=== PATIENT | male | born 2000 | race Caucasian/White ===

== ENCOUNTER 2020-02-10 17:59 | Emergency (ER) | payer OTHER ==
[2020-02-10 18:05] VITALS: BP 140/70
[2020-02-10] MEDS ORDERED: HYDROcod/ACET 5/325 Prepack 4 PO STA (18:26)
[2020-02-10] MEDS ORDERED: PENICILLIN VK 250 MG TABLET PO STA (18:26)
--- NOTE | 2020-02-10 18:28 | ED Physician Documentation ---
History of Present Illness - Stated complaint Stated Complaint: TOOTH PX - Chief complaint Chief Complaint: Heent - History obtained from History obtained from: Patient (19-year-old gentleman who is active duty in the [employer] has had about 4 days of worsening dental pain from left mandibular last molar noting that he still has his wisdom teeth with some purulence expressed and mild facial swelling but no fevers.) Review of Systems Constitutional: reports: Reviewed and negative Eyes: reports: Reviewed and negative Ears: reports: Reviewed and negative Cardiac: reports: Reviewed and negative PD PAST MEDICAL HISTORY - Present Medications Home Medications: Ambulatory Orders Medication Instructions Recorded Confirmed Chlorhexidine Gluconate [Peridex] 15 ml MM QID #300 ml 02/10/20 HYDROcod/ACETAM 5/325 [[place] 5/325] 1 - 2 tab PO Q6H PRN #7 tablet 02/10/20 Ibuprofen [Motrin] 800 mg PO Q8H PRN #30 tablet 02/10/20 Penicillin V Potassium 500 mg PO Q6HR #40 tablet 02/10/20 - Allergies Allergies/Adverse Reactions: Allergies Allergy/AdvReac Type Severity Reaction Status Date / Time No Known Drug Allergies Allergy Verified 02/10/20 18:02 PD ED PE NORMAL - Vitals Vital signs reviewed: Yes - General General: Alert and oriented X 3, No acute distress - HEENT HEENT: Other (The left mandibular wisdom tooth is tender with just mild gingival swelling there but no obvious purulence at this time. No sublingual edema or trismus.) - Neck Neck: Supple, no meningeal sign, No bony TTP - Neuro Neuro: Alert and oriented X 3, Normal speech Results - Vitals Vitals: Vital Signs - 24 hr 02/10/20 18:02 Temperature 36.5 C Heart Rate 74 Respiratory 16 Rate Blood Pressure 140/70 H O2 Saturation 98 Oxygen O2 Source Room air Departure - Departure Disposition: 01 Home, Self Care Clinical Impression: Pain, dental Condition: Good Record reviewed to determine appropriate education?: Yes Instructions: ED Tooth Pain Prescriptions: Penicillin V Potassium 500 mg PO Q6HR #40 tablet Ibuprofen [Motrin] 800 mg PO Q8H PRN #30 tablet PRN Reason: PAIN &/OR FEVER HYDROcod/ACETAM 5/325 [[place] 5/325] 1 - 2 tab PO Q6H PRN #7 tablet PRN Reason: Pain Chlorhexidine Gluconate [Peridex] 15 ml MM QID #300 ml Comments: [facility] Forms: Activity restrictions
== END 2020-02-10 18:33 | disposition home or self-care (01) ==
LOC: ED 17:59
DX: K08.89 Other specified disorders of teeth and supporting structures (principal)
CPT/HCPCS: 99283; A9270

== ENCOUNTER 2020-07-08 00:34 | Emergency (ER) | payer OTHER ==
[2020-07-08 00:44] VITALS: BP 138/88
--- NOTE | 2020-07-08 01:20 | ED Physician Documentation ---
PD HPI HEENT - Stated complaint Stated Complaint: MOUTH INJ - Chief complaint Chief Complaint: Heent - History obtained from History obtained from: Patient - History of Present Illness Timing - onset: Enter time (23:30), Today Timing - details: Abrupt onset Pain level now: 2 Location: Tooth Recently seen: Not recently seen - Additional information Additional information: patient tripped when walking up stairs at home tonight, approximately 23:30. his tooth was fractured when it hit a stair. The same tooth had been broken approximately 5 years ago and he says part of the tooth was a ceramic implant from repair of that injury. he has no other injury except mild swelling of lower lip. Denies HUSAIN, neck pain. Denies LOC. He describes mild dental pain. Review of Systems Throat: reports: Dental pain / toothache PD PAST MEDICAL HISTORY - Past Medical History Past Medical History: No - Present Medications Home Medications: Ambulatory Orders Medication Instructions Recorded Confirmed No Known Home Medications 07/08/20 07/08/20 - Allergies Allergies/Adverse Reactions: Allergies Allergy/AdvReac Type Severity Reaction Status Date / Time No Known Drug Allergies Allergy Verified 07/08/20 00:44 PD ED PE NORMAL - Vitals Vital signs reviewed: Yes - General General: Alert and oriented X 3, No acute distress, Well developed/nourished - HEENT HEENT: Moist mucous membranes PD ED PE EXPANDED - HEENT HEENT Visual: 1 - deformity (lynne II fracture along line as diagrammed (trace exposed dentin). the tooth has minimal laxity. no gingival abnormality.) 2 - swelling (trace swelling, small echymosis, no laceration) Results - Vitals Vitals: Vital Signs - 24 hr 07/08/20 00:40 Temperature 36.5 C Heart Rate 91 Respiratory 16 Rate Blood Pressure 138/88 H O2 Saturation 98 Oxygen O2 Source Room air PD MEDICAL DECISION MAKING - ED course Complexity details: considered differential, d/w patient ED course: isolated injury after fall at home, with injury being lynne II fracture through maxillary left medial incisor. The exposed dentin is minimal. he says the pain is mild and declines analgesia. I considered placing calcium hydroxide paste for sealant effect, but none is available in ED (I was able to locate some, but it was ). Patient says he feels confident that he can arrange f/u later today and is comfortable with d/c home at this time. Departure - Departure Disposition: 01 Home, Self Care Clinical Impression: Tooth fracture Qualifiers: Encounter type: initial encounter Fracture type: closed Qualified Code(s): S02.5XXA - Fracture of tooth (traumatic), initial encounter for closed fracture Condition: Good Instructions: ED Fx Tooth Follow-Up: [facility] Torres [Provider Group] Rolando Panchal DDS [Provider Admit Priv/Credential] - Forms: Activity restrictions Discharge Date/Time: 07/08/20 02:27
== END 2020-07-08 02:27 | disposition home or self-care (01) ==
LOC: ED 00:34
DX: S02.5XXA Fracture of tooth (traumatic), initial encounter for closed fracture (principal); S00.531A Contusion of lip, initial encounter; W10.9XXA Fall (on) (from) unspecified stairs and steps, initial encounter; Y93.01 Activity, walking, marching and hiking; Y92.009 Unspecified place in unspecified non-institutional (private) residence as the place of occurrence of the external cause
CPT/HCPCS: 99281; 99282

== ENCOUNTER 2022-03-23 21:16 | Emergency (ER) | payer OTHER ==
[2022-03-23 21:25] VITALS: BP 152/72
--- NOTE | 2022-03-23 22:14 | ED Physician Documentation ---
PD HPI MALE - Stated complaint Stated Complaint: MALE - Chief complaint Chief Complaint: General - History obtained from History obtained from: Patient - History of Present Illness Timing - onset: How many hours ago (4) Timing - duration: Hours Timing - details: Gradual onset Pain level now: 3 Associated symptoms: Testiclar pain. No: Dysuria, Urinary frequency, Discharge, Scrotal swelling PD HPI MALE CONTRIB FACTORS: Sexually active Similar symptoms before: Has not had sx before Recently seen: Not recently seen - Additional information Additional information: HPI from patient. Patient c/o gradual onset left testicular pain, exacerbated with standing, palpation. Denies h/o similar symptoms. He is sexually active with more than one partner over past several months Review of Systems Constitutional: denies: Fever : denies: Dysuria, Frequency, Discharge Skin: denies: Rash PD PAST MEDICAL HISTORY - Past Medical History Past Medical History: Yes - Present Medications Home Medications: Ambulatory Orders Medication Instructions Recorded Confirmed Doxycycline [Vibramycin] 100 mg PO BID #19 tablet 03/24/22 - Allergies Allergies/Adverse Reactions: Allergies Allergy/AdvReac Type Severity Reaction Status Date / Time No Known Drug Allergies Allergy Verified 03/23/22 21:25 - Social History Does the pt smoke?: No Smoking Status: Never smoker Does the pt drink ETOH?: Yes Does the pt have substance abuse?: No - POLST Patient has POLST: No PD ED PE NORMAL - Vitals Vital signs reviewed: Yes - General General: Alert and oriented X 3, No acute distress, Well developed/nourished - Abdomen Abdomen: Soft, Non tender - Back Back: No CVA TTP Results - Vitals Vitals: Vital Signs - 24 hr 03/23/22 21:19 Temperature 37.5 C Heart Rate 92 Respiratory 17 Rate Blood Pressure 152/72 H O2 Saturation 98 Oxygen O2 Source Room air - Labs Labs: Laboratory Tests 03/23/22 22:25 Urine Color YELLOW Urine Clarity CLEAR Urine pH 8.0 H Ur Specific [place] 1.020 Urine Protein NEGATIVE Urine Glucose (UA) NEGATIVE Urine Ketones NEGATIVE Urine Occult Blood NEGATIVE Urine Nitrite NEGATIVE Urine Bilirubin NEGATIVE Urine Urobilinogen 0.2 (NORMAL) Ur Leukocyte Esterase NEGATIVE Ur Microscopic Review NOT INDICATED Urine Culture Comments NOT INDICATED PD Medical Decision Making - ED course Complexity details: reviewed results, re-evaluated patient, considered differential, d/w patient ED course: normal results on urinalysis. US as interpreted by radiology: "increased vasculariy within the testicles and epididymes. Findings are nonspecific but may reflect epididymoorchitis". Results d/w patient. Given that he is sexually active with more than one partner over past few months, antibiotic coverage for bacterial cause of symptoms and US findings to cover STDs is given in ED (ceftriaxone as one-time IM dose and PO doxycycline), and 10-day course of doxycycline e-prescribed to patient's pharmacy of choice Departure - Departure Disposition: 01 Home, Self Care Clinical Impression: Epididymitis Condition: Good Instructions: ED Epididymitis Prescriptions: Doxycycline [Vibramycin] 100 mg PO BID #19 tablet Comments: The ultrasound does not show any evidence of torsion; as we discussed, this would be an unlikely but serious cause of testicular pain. There is mild inflammation of both testes. This is a nonspecific finding, but one of the potential explanations for this finding in combination with your symptoms would be epididymitis. Discharge instructions regarding this diagnosis have been provided in this discharge packet. One of the possible causes of epididymitis is infection including STDs. You were given a one-time dose of an antibiotic in the emergency department, as well as the first dose of a 10-day course of a different antibiotic that would cover most of the typical bacterial causes of epididymitis. The oral antibiotic prescription has been electronically submitted to the [facility] pharmacy in [place]. Discharge Date/Time: 03/24/22 00:27
[2022-03-23 22:33] LABS: BILIRUBIN,URINE NEGATIVE (NEGATIVE); GLUCOSE, URINE (UA) NEGATIVE (NEGATIVE); KETONES,URINE (UA) NEGATIVE (NEGATIVE); LEUKOCYTE ESTERASE, URINE NEGATIVE (NEGATIVE); NITRITE,URINE NEGATIVE (NEGATIVE); OCCULT BLOOD,URINE NEGATIVE (NEGATIVE); PROTEIN,URINE NEGATIVE (NEGATIVE); UROBILINOGEN,URINE 0.2 (NORMAL) E.U./dL (NORMAL)
[2022-03-23 22:35] LABS: CLARITY,URINE CLEAR (CLEAR)
--- NOTE | 2022-03-23 23:47 | Ultrasound Report ---
PROCEDURE: Testicle w/Doppler INDICATIONS: left testicular pain TECHNIQUE: Real-time scanning was performed of the scrotum and testicles, with image documentation. Color and p ulse Doppler interrogation was performed of both testicles. COMPARISON: None. FINDINGS: Right: Testicle measures 4.9 x 2.1 x 2.8 cm and appears homogenous in echotexture. Epididymis is no rmal in overall size and morphology. There is a minimal hydrocele. No varicoceles. Overlying scrota l skin is normal in thickness. Left: Testicle measures 4.6 x 2.1 x 3.1 cm and appears homogeneous in echotexture. Epididymis is no rmal in overall size and morphology. There is a left epididymal head cyst or spermatocele measuring up to 0.5 cm. There is a minimal hydrocele. No varicoceles. Overlying scrotal skin is normal in thic kness. Doppler: Color and pulse Doppler demonstrate increased vascularity within the testicles and epididym ides bilaterally.. IMPRESSION: 1. Increased vascularity within the testicles and epididymides. Findings are nonspecific but may refl ect epididymoorchitis. Recommend correlation clinically. Reviewed by: Darryn Harris MD on 03/23/2022 11:46 PM PST Approved by: Darryn Harris MD on 03/23/2022 11:46 PM PST Station ID: [id number]
[2022-03-24] MEDS ORDERED: DOXYCYCLINE 100 MG TABLET PO STA (00:03)
[2022-03-24] MEDS ORDERED: cefTRIAXone 500 MG VIAL IM STA (00:03)
[2022-03-24] MEDS ORDERED: LIDOCAINE 1% 2 ML VIAL MC ONE (00:03)
== END 2022-03-24 00:27 | disposition home or self-care (01) ==
LOC: ED 21:16
DX: N45.1 Epididymitis (principal)
CPT/HCPCS: 76870; 81003; 93975; 96372; 99283; 99284; A9270; 81001; 87086